=== PATIENT | female | born 1970 | race Caucasian/White ===

== ENCOUNTER 2022-10-16 09:57 | Emergency (ER) | payer MEDICAID ==
[~2022-10-16] VITALS: Ht 160 cm; Wt 90.0 kg
[2022-10-16 10:01] VITALS: TEMP 97.9; O2SAT 97
[2022-10-16] MEDS ORDERED: IBUPROFEN 600MG TABLET PO ONE (10:15)
[2022-10-16 10:32] VITALS: BP 112/62; PULSE 82; RESP 13
[2022-10-16] MEDS ORDERED: IBUP-2029 MT (12:14)
== END 2022-10-16 12:41 | disposition home or self-care (01) ==
LOC: ER 10:17
DX: S70.02XA Contusion of left hip, initial encounter (principal); S80.02XA Contusion of left knee, initial encounter; V99.XXXA Unspecified transport accident, initial encounter; Y93.89 Activity, other specified; Y92.89 Other specified places as the place of occurrence of the external cause; Y99.8 Other external cause status
CPT/HCPCS: 73502; 73560; 73600; 99291